=== PATIENT | female | born 1960 | race Caucasian/White ===

== ENCOUNTER 2016-12-10 20:27 | Emergency (ER) | payer BC ==
[2016-12-10 20:37] VITALS: RESP 16
[2016-12-10] MEDS ORDERED: IBUPROFEN 600 MG TAB PO ONE ×2 (21:24→21:25)
--- NOTE | 2016-12-10 21:24 | EDPHY ---
General Medical Decision Making: CHIEF COMPLAINT: Fall, right ankle pain HISTORY OF PRESENT ILLNESS: walking down a flight of stairs when she slipped, missing 1 step. She says her right foot folded up on itself. She landed on the right knee with an abrasion. She has no pain in the knee but does have some moderate pain in the right ankle, primarily over the lateral malleolus. Ambulatory but painful to do so. Radiates into the cardoso. No pain in the head or neck, back, chest, abdomen or left leg. Minimal abrasion to the right knee and she is up-to-date on her tetanus. No lacerations or contusions. Pain is worse with palpation or ambulation. Improved with rest. No other associated complaints or modifying factors. PRIOR ORTHO INJURIES: Multiple ESTABLISHED ORTHOPEDIST: Dr. Car REVIEW OF SYSTEMS: Ten systems reviewed and are negative unless otherwise noted in the HPI EXAMINATION General Appearance: Alert, no distress Head: normocephalic, atraumatic Eyes: Pupils equal and round, no conjunctival pallor or injection ENT, Mouth: Mucous membranes moist Respiratory: No dyspnea or retractions. No distress Cardiovascular: Pulses normal throughout with symmetric radial, DP and PT pulses at 2+. Brisk cap refill Gastrointestinal: No distention Neurological: A&O, sensory symmetric, strength symmetric At 5/5 in all 4 limbs. Skin: Warm and dry, no rash . Superficial abrasion to the right knee. No laceration. Extremities: RLE: edema and Tenderness to palpation of the right lateral malleolus. No tenderness of the medial malleolus. There is no tenderness of the proximal fibula. No tenderness of the patella or patellar tendon. Range of motion of the right knee is fully intact and painless. Range of motion of the right ankle is intact but painful with dorsiflexion and inversion. There is no crepitus or deformity. No tenderness of the midfoot. No tenderness of the calcaneus. Neurovascular intact distal to the ankle pain. Remainder of musculoskeletal exam is within normal limits. DIFFERENTIAL DIAGNOSES: Including but not limited to Fracture, sprain, strain, dislocation, hematoma, abrasion, contusion MDM: 9:30 p.m. mechanical fall with right distal fibula fracture, closed. There is no tenderness of the proximal fibula. No tenderness of the midfoot or calcaneus. She is neurovascularly intact. She is weight-bearing in the ER. I will place her in a [place] boot, crutches, and she will be discharged home weight-bearing as tolerated. She has an established orthopedist that she will follow up with, but we have provided our orthopedist protection specialist should she need them. Return to the ER precautions discussed. She is discharged home with instructions to take Percocet every 4-6 hours as needed for pain. She has Flexeril at home from a previous injury, but I did not recommend that she combine these this evening. ED Precautions: Worsening pain. Erythema, edema, cyanosis, pallor, paresthesia or anesthesia. SUPERVISION: This patient was independently evaluated without the aide of supervising physician. - History Smoking Status: Never smoked - Objective Vital Signs: Initial Vital Signs Temperature (C) 98.2 F 12/10/16 20:35 Heart Rate 71 12/10/16 20:35 Respiratory Rate 16 12/10/16 20:35 Blood Pressure 117/75 12/10/16 20:35 O2 Sat (%) 95 12/10/16 20:35 O2 Delivery Mode Room Air Allergies/Adverse Reactions: No Known Allergies Allergy (Unverified 12/10/16 20:32) Home Medications: Medication Instructions Recorded Crestor 12/10/16 Synthroid 50 mcg (*) 12/10/16 Telmisartan 12/10/16 clonIDINE 12/10/16 oxyCODONE HCL/ACETAMINOPHEN 1 each PO Q4-6PRN PRN #15 tablet 12/10/16 [Percocet 5-325 mg Tablet] Departure - Departure Disposition: Home, Routine, Self-Care Clinical Impression: Fracture of distal fibula Qualifiers: Encounter type: initial encounter Fracture type: closed Fracture morphology: unspecified fracture morphology Laterality: right Qualified Code(s): S82.831A - Other fracture of upper and lower end of right fibula, initial encounter for closed fracture Condition: Good Instructions: Ankle Fracture (ED), Oxycodone/Acetaminophen (By mouth) Additional Instructions: follow up with Established orthopedist or our orthopedist Dr. High. Return to the ER for worsening pain, numbness, tingling Referrals: Franky Car DPM [Doctor of Podiatric Medicine] - As per Instructions Leidy High MD [Medical Doctor] - As per Instructions Prescriptions: oxyCODONE HCL/ACETAMINOPHEN [Percocet 5-325 mg Tablet] 1 each PO Q4-6PRN PRN # 15 tablet PRN Reason: Pain, Breakthrough
[2016-12-10] MEDS ORDERED: OXYCODONE/APAP 5/325MG PREPACK#4 BTL TAKEHOME ONE (21:25)
[2016-12-10 22:04] VITALS: BP 112/73; PULSE 73; TEMP 97.9; O2SAT 97
== END 2016-12-10 22:04 | disposition home or self-care (01) ==
DX: S82.831A Other fracture of upper and lower end of right fibula, initial encounter for closed fracture (principal); W10.9XXA Fall (on) (from) unspecified stairs and steps, initial encounter
CPT/HCPCS: L4386

== ENCOUNTER 2017-08-20 20:44 | Emergency (ER) | payer BC ==
[2017-08-20 20:48] VITALS: RESP 18; TEMP 97.9
--- NOTE | 2017-08-20 21:13 | EDPHY ---
H & P Smoking Status: Never smoked Time Seen by Provider: 08/20/17 20:56 HPI/ROS: CHIEF COMPLAINT: Right 4th and 5th toe pain HISTORY OF PRESENT ILLNESS: 57-year-old female arrives via private vehicle complaining of acute right 4th and 5th toe pain when she was swimming this morning, doing the breast stroke and impacted this toes against the edge of the pool. She is able to bear weight albeit with pain. No discoloration. Intact skin. No paresthesia. PHYSICAL EXAM (Prior to examination, patient consented to physical exam, hands were washed and my usual and customary physical exam procedures followed) 1) GENERAL: Well-developed, well-nourished, alert and oriented. Appears to be in no acute distress. 2) HEAD: Normocephalic 3) HEENT: sclera anicteric 4) LUNGS: Breathing comfortably. 5) SKIN: right foot and toe skin is intact, no discoloration, no ecchymosis, no erythema. 6) MUSCULOSKELETAL: tender to palpation 4th and 5th toes with no deformity no angulation. Normal cascading of toes. No malrotation. 7) NEUROLOGIC: Full sensation. (Susan,Carmen Tequila) Constitutional: Initial Vital Signs Temperature (C) 36.6 C 08/20/17 20:45 Heart Rate 79 08/20/17 20:45 Respiratory Rate 18 08/20/17 20:45 Blood Pressure 124/89 H 08/20/17 20:45 O2 Sat (%) 95 08/20/17 20:45 O2 Delivery Mode Room Air Allergies/Adverse Reactions: No Known Allergies Allergy (Unverified 12/10/16 20:32) Home Medications: Medication Instructions Recorded Crestor 12/10/16 Synthroid 50 mcg (*) 12/10/16 Telmisartan 12/10/16 clonIDINE 12/10/16 Chlorthalidone 08/20/17 Diltiazem 08/20/17 MDM/Departure - MDM Procedures: Procedure: Splint A postop shoe splint and demetrius tape of the 3rd, 4th, 5th toes was applied by ER breeder service technician. After application of the splint I returned and re-examined the patient. The splint was adequately immobilizing the joint and distal to the splint the patient's circulation and sensation were intact. Patient shows no signs of compartment syndrome. Was given orthopedic precautions. (Carmen Davis ) ED Course/Re-evaluation: The patient was evaluated and managed by the physician child care center assistant director. I have reviewed this chart and I agree with the findings and plan of care as documented , as indicated by my signature. I am the secondary supervising physician. ( Rubina Krishna) - Depart Disposition: Home, Routine, Self-Care Clinical Impression: Fracture of fourth toe, right, closed Qualifiers: Encounter type: initial encounter Qualified Code(s): S92.501A - Displaced unspecified fracture of right lesser toe(s), initial encounter for closed fracture Condition: Good Instructions: Toe Fracture (ED) Additional Instructions: Return to the ER immediately if you experience discoloration, have worsening pain, numbness, tingling, or any other symptoms that concern you. If you received x-rays in the emergency department today, be advised, that ligamentous , tendon, muscular, and other non-bony injury cannot be fully ruled out. Try to keep your affected extremity elevated above the level of your chest, and keep cold packs on the affected area, for the next 48 hours. Referrals: Ranulfo Lennon DPM [Doctor of Podiatric Medicine] - As per Instructions
[2017-08-20 22:00] VITALS: BP 133/75; PULSE 77; O2SAT 93
== END 2017-08-20 21:59 | disposition home or self-care (01) ==
DX: S92.521A Displaced fracture of middle phalanx of right lesser toe(s), initial encounter for closed fracture (principal); W22.8XXA Striking against or struck by other objects, initial encounter; Y92.34 Swimming pool (public) as the place of occurrence of the external cause; Y93.11 Activity, swimming
CPT/HCPCS: L3260

== ENCOUNTER → 2017-08-22 | Outpatient (CLI) | payer BC | LOC: BMCIMAGING 15:38 | PROVIDERS: ATTEND Internal Medicine | DX: Z13.820 Encounter for screening for osteoporosis (principal); M85.80 Other specified disorders of bone density and structure, unspecified site ==